=== PATIENT | male | born 1940 | race Caucasian/White ===

== ENCOUNTER 2021-03-14 18:37 | Inpatient (IN) | payer OTHER ==
[2021-03-14 20:39] VITALS: BMI 39.3
[2021-03-14 20:44] LABS: BASO % 0.9 % (0-2.0); EOS % 9.1 % (0-4.5); HEMATOCRIT 35.9 % (35.4-49); HEMOGLOBIN 12.3 GM/dL (11.7-16.9); LYMPH % 18.8 % (8-40); MCH 32.9 pg (25.7-33.7); MCHC 34.2 g/dl (32.0-35.9); MEAN CELL VOLUME 96.2 fl (80-96); MEAN PLT VOLUME 7.6 fl (7.5-11.1); MONO % 8.9 % (3.8-10.2); NEUT % 62.3 % (42.8-82.8); PLATELET COUNT 311 10^3/uL (134-434); RBC 3.73 M/mm3 (4.00-5.60); RDW 12.2 % (11.9-15.9)
[2021-03-14 21:01] LABS: CHLORIDE 105 mmol/L (98-107); SODIUM 139 mmol/L (136-145)
[2021-03-14 21:02] LABS: CALCIUM 8.9 mg/dL (8.5-10.1)
[2021-03-14 21:03] LABS: ALBUMIN 3.6 g/dl (3.4-5.0); ANION GAP 4 MMOL/L (8-16); BLOOD UREA NITROGEN 17.7 mg/dL (7-18); CO2 30 mmol/L (21-32); GLUCOSE,RANDOM 86 mg/dL (74-106)
[2021-03-14 21:06] LABS: CREATININE 1.1 mg/dL (0.55-1.3); SGOT/AST 18 U/L (15-37); SGPT/ALT 16 U/L (13-61)
[2021-03-14 21:08] LABS: BILIRUBIN,TOTAL 0.5 mg/dL (0.2-1); TOT PROT 6.6 g/dl (6.4-8.2)
[2021-03-14 21:09] LABS: ALK PHOS 59 U/L (45-117)
[2021-03-14 21:11] LABS: N-TERMINAL BNP 239.8 pg/ml (5-450)
[2021-03-14 22:54] LABS: PH,URINE 8.5 (5.0-8.0); URINE APPEARANCE CLEAR; URINE BILIRUBIN NEGATIVE (NEGATIVE); URINE COLOR YELLOW; URINE GLUCOSE (UA) NEGATIVE (NEGATIVE); URINE KETONE NEGATIVE (NEGATIVE); URINE LEUK ESTERASE NEGATIVE (NEGATIVE); URINE NITRITE NEGATIVE (NEGATIVE); URINE PROTEIN NEGATIVE (NEGATIVE); URINE UROBILINOGEN 0.2 mg/dL (0.2-1.0)
[2021-03-14] MEDS ORDERED: IBUPROFEN 600 MG TABLET (FP) PO ONE ×2 (22:54→22:56)
[2021-03-15] MEDS ORDERED: MELATONIN 5 MG TABLETS PO ONE (02:26)
[2021-03-15] MEDS ORDERED: ACETAMINOPHEN 325 MG TABLET (FP) PO PRN (05:59)
[2021-03-15] MEDS: FUROSEMIDE 40 MG/4 ML INJECTABLE VIAL IVPUSH SCH (15:10)
[2021-03-15] MEDS: amLODIPine BESYLATE 10 MG TABLET (FP) PO SCH (15:10)
[2021-03-15] MEDS ORDERED: PT OWN MED DRAWER 7, Y5N ONE (15:54)
[2021-03-15] MEDS: lamoTRIgine 100 MG TABLET PO SCH (15:57)
[2021-03-15] MEDS: ENOXAPARIN NA (PORCINE) 40 MG/0.4 ML DISP.SYRIN SQ SCH (15:57)
[2021-03-15] MEDS: MELATONIN 5 MG TABLETS PO PRN (21:21)
[2021-03-15] MEDS: ATORVASTATIN CA 20 MG TABLET (FP) PO SCH (21:21)
[2021-03-16] MEDS: amLODIPine BESYLATE 10 MG TABLET (FP) PO SCH (09:44)
[2021-03-16] MEDS: FUROSEMIDE 40 MG/4 ML INJECTABLE VIAL IVPUSH SCH (09:44)
[2021-03-16] MEDS: ENOXAPARIN NA (PORCINE) 40 MG/0.4 ML DISP.SYRIN SQ SCH (09:44)
[2021-03-16] MEDS: TAMSULOSIN HCL 0.4 MG CAP PO SCH (09:45)
[2021-03-16] MEDS: lamoTRIgine 100 MG TABLET PO SCH (09:45)
[2021-03-16 10:40] LABS: BASO % 0.4 % (0-2.0); HEMATOCRIT 39.7 % (35.4-49); HEMOGLOBIN 13.9 GM/dL (11.7-16.9); LYMPH % 10.7 % (8-40); MCH 33.1 pg (25.7-33.7); MCHC 35.1 g/dl (32.0-35.9); MEAN CELL VOLUME 94.4 fl (80-96); MEAN PLT VOLUME 7.3 fl (7.5-11.1); NEUT % 77.9 % (42.8-82.8); PLATELET COUNT 393 10^3/uL (134-434); RBC 4.21 M/mm3 (4.00-5.60); WHITE BLOOD COUNT 7.6 K/mm3 (4.0-10.0)
[2021-03-16 11:02] LABS: CALCIUM 9.2 mg/dL (8.5-10.1)
[2021-03-16 11:03] LABS: ALBUMIN 4.2 g/dl (3.4-5.0); BLOOD UREA NITROGEN 23.6 mg/dL (7-18)
[2021-03-16 11:06] LABS: CREATININE 1.2 mg/dL (0.55-1.3)
[2021-03-16 11:08] LABS: BILIRUBIN,TOTAL 0.7 mg/dL (0.2-1); TOT PROT 7.6 g/dl (6.4-8.2)
[2021-03-16] MEDS: ESCITALOPRAM OXALATE 10 MG TABLET PO SCH (12:20)
[2021-03-16] MEDS: ATORVASTATIN CA 20 MG TABLET (FP) PO SCH (21:03)
[2021-03-16] MEDS: MELATONIN 5 MG TABLETS PO PRN (22:11)
[2021-03-16] MEDS ORDERED: traZODone HCL 50 MG TABLET (FP) PO ONE (23:03)
[2021-03-17] MEDS ORDERED: QUEtiapine FUMARATE 25 MG TABLET PO ONE (05:24)
[2021-03-17] MEDS: TAMSULOSIN HCL 0.4 MG CAP PO SCH (07:54)
[2021-03-17] MEDS: ESCITALOPRAM OXALATE 10 MG TABLET PO SCH (08:59)
[2021-03-17] MEDS: ENOXAPARIN NA (PORCINE) 40 MG/0.4 ML DISP.SYRIN SQ SCH (08:59)
[2021-03-17] MEDS: lamoTRIgine 100 MG TABLET PO SCH (08:59)
[2021-03-17] MEDS: FUROSEMIDE 40 MG/4 ML INJECTABLE VIAL IVPUSH SCH (08:59)
[2021-03-17] MEDS: amLODIPine BESYLATE 10 MG TABLET (FP) PO SCH (08:59)
[2021-03-17] MEDS ORDERED: clonazePAM 0.5 MG TABLET PO PRN (09:06)
[2021-03-17] MEDS ORDERED: LORazepam 2 MG/ML SDV VIAL ONE (09:11)
[2021-03-17] MEDS ORDERED: levETIRAcetam 500 MG/5 ML INJECTION VIAL IVPB ONE (09:26)
[2021-03-17] MEDS ORDERED: LORazepam 2 MG/ML SDV VIAL IVPUSH ONE ×2 (09:38→10:11)
[2021-03-17] MEDS: LORazepam 2 MG/ML SDV VIAL IVPUSH PRN ×3 (11:30→17:26)
[2021-03-17 13:06] LABS: BASO % 0.1 % (0-2.0); EOS % 0.1 % (0-4.5); HEMATOCRIT 37.1 % (35.4-49); LYMPH % 5.2 % (8-40); MCH 33.5 pg (25.7-33.7); MEAN CELL VOLUME 95.6 fl (80-96); MEAN PLT VOLUME 7.8 fl (7.5-11.1); MONO % 7.2 % (3.8-10.2); NEUT % 87.4 % (42.8-82.8); PLATELET COUNT 355 10^3/uL (134-434); RBC 3.88 M/mm3 (4.00-5.60); RDW 12.2 % (11.9-15.9); WHITE BLOOD COUNT 9.6 K/mm3 (4.0-10.0)
[2021-03-17 13:32] LABS: ALBUMIN 3.7 g/dl (3.4-5.0); BLOOD UREA NITROGEN 28.9 mg/dL (7-18); CALCIUM 8.8 mg/dL (8.5-10.1)
[2021-03-17 13:35] LABS: CREATININE 1.2 mg/dL (0.55-1.3)
[2021-03-17 13:37] LABS: BILIRUBIN,TOTAL 0.7 mg/dL (0.2-1); TOT PROT 6.7 g/dl (6.4-8.2)
[2021-03-17] MEDS ORDERED: MELATONIN 5 MG TABLETS PO PRN (15:00)
[2021-03-17] MEDS ORDERED: ACETAMINOPHEN 325 MG TABLET (FP) PO PRN (15:00)
[2021-03-17] MEDS: PANTOPRAZOLE SODIUM 40 MG VIAL IVPUSH SCH (21:18)
[2021-03-17] MEDS: CHLORHEXIDINE GLUCONATE 4% CLEANSER FOR DECOLONIZATION TP SCH (21:18)
[2021-03-17] MEDS: MUPIROCIN 2% TOPICAL OINTMENT FOR DECOLONIZATION NS SCH (21:18)
[2021-03-17] MEDS: ATORVASTATIN CA 20 MG TABLET (FP) PO SCH (21:18)
[2021-03-17 22:08] LABS: EPI CELLS 12 /uL (0-25.1); HYALINE CASTS 3 /uL (0-3.1); PH,URINE 5.5 (5.0-8.0); URINE APPEARANCE CLOUDY; URINE BACTERIA 7 /uL (0-1359); URINE BILIRUBIN NEGATIVE (NEGATIVE); URINE COLOR RED; URINE GLUCOSE (UA) NEGATIVE (NEGATIVE); URINE KETONE TRACE (NEGATIVE); URINE LEUK ESTERASE 1+ (NEGATIVE); URINE NITRITE NEGATIVE (NEGATIVE); URINE PROTEIN 2+ (NEGATIVE); URINE RBC 12410 /uL (0-23.9); URINE WBC 51 /uL (0-25.8)
[2021-03-18 07:52] LABS: BASO % 0.5 % (0-2.0); HEMATOCRIT 38.7 % (35.4-49); HEMOGLOBIN 13.5 GM/dL (11.7-16.9); LYMPH % 10.3 % (8-40); MCH 33.6 pg (25.7-33.7); MCHC 34.9 g/dl (32.0-35.9); MEAN CELL VOLUME 96.2 fl (80-96); MEAN PLT VOLUME 7.6 fl (7.5-11.1); MONO % 11.2 % (3.8-10.2); PLATELET COUNT 370 10^3/uL (134-434); RBC 4.02 M/mm3 (4.00-5.60); RDW 12.2 % (11.9-15.9); WHITE BLOOD COUNT 7.4 K/mm3 (4.0-10.0)
[2021-03-18 08:16] LABS: CALCIUM 8.9 mg/dL (8.5-10.1)
[2021-03-18 08:17] LABS: BLOOD UREA NITROGEN 23.3 mg/dL (7-18); MAGNESIUM 2.1 mg/dL (1.8-2.4)
[2021-03-18] MEDS: TAMSULOSIN HCL 0.4 MG CAP PO SCH (09:30)
[2021-03-18] MEDS: ENOXAPARIN NA (PORCINE) 40 MG/0.4 ML DISP.SYRIN SQ SCH (10:12)
[2021-03-18] MEDS: PANTOPRAZOLE SODIUM 40 MG VIAL IVPUSH SCH (10:13)
[2021-03-18] MEDS: FUROSEMIDE 40 MG/4 ML INJECTABLE VIAL IVPUSH SCH (10:15)
[2021-03-18] MEDS: ESCITALOPRAM OXALATE 10 MG TABLET PO SCH (10:24)
[2021-03-18] MEDS: amLODIPine BESYLATE 10 MG TABLET (FP) PO SCH (10:25)
[2021-03-18] MEDS: MUPIROCIN 2% TOPICAL OINTMENT FOR DECOLONIZATION NS SCH ×2 (11:00→21:19)
[2021-03-18] MEDS ORDERED: clonazePAM 0.5 MG TABLET PO PRN (12:10)
[2021-03-18] MEDS: ATORVASTATIN CA 20 MG TABLET (FP) PO SCH (21:19)
[2021-03-18] MEDS: CHLORHEXIDINE GLUCONATE 4% CLEANSER FOR DECOLONIZATION TP SCH (21:19)
[2021-03-19 07:49] LABS: BASO % 0.5 % (0-2.0); EOS % 2.4 % (0-4.5); HEMATOCRIT 38.6 % (35.4-49); HEMOGLOBIN 13.1 GM/dL (11.7-16.9); LYMPH % 10.2 % (8-40); MCH 32.5 pg (25.7-33.7); MCHC 33.9 g/dl (32.0-35.9); MEAN PLT VOLUME 7.8 fl (7.5-11.1); NEUT % 75.9 % (42.8-82.8); PLATELET COUNT 338 10^3/uL (134-434); RBC 4.03 M/mm3 (4.00-5.60); RDW 12.1 % (11.9-15.9); WHITE BLOOD COUNT 7.2 K/mm3 (4.0-10.0)
[2021-03-19 08:10] LABS: ALBUMIN 3.1 g/dl (3.4-5.0); BLOOD UREA NITROGEN 31.5 mg/dL (7-18); CALCIUM 8.7 mg/dL (8.5-10.1)
[2021-03-19 08:12] LABS: MAGNESIUM 2.1 mg/dL (1.8-2.4)
[2021-03-19 08:14] LABS: BILIRUBIN,TOTAL 0.7 mg/dL (0.2-1); CREATININE 1.1 mg/dL (0.55-1.3); PHOSPHOROUS 3.6 mg/dL (2.5-4.9)
[2021-03-19 08:15] LABS: TOT PROT 6.1 g/dl (6.4-8.2)
[2021-03-19] MEDS: TAMSULOSIN HCL 0.4 MG CAP PO SCH (09:28)
[2021-03-19] MEDS: FUROSEMIDE 40 MG/4 ML INJECTABLE VIAL IVPUSH SCH (09:28)
[2021-03-19] MEDS: amLODIPine BESYLATE 10 MG TABLET (FP) PO SCH (09:28)
[2021-03-19] MEDS: ESCITALOPRAM OXALATE 10 MG TABLET PO SCH (09:28)
[2021-03-19] MEDS: ENOXAPARIN NA (PORCINE) 40 MG/0.4 ML DISP.SYRIN SQ SCH (09:28)
[2021-03-19] MEDS: PANTOPRAZOLE SODIUM 40 MG VIAL IVPUSH SCH (09:30)
[2021-03-19] MEDS: MUPIROCIN 2% TOPICAL OINTMENT FOR DECOLONIZATION NS SCH ×2 (10:16→21:56)
[2021-03-19] MEDS ORDERED: SULFAMETHOXAZOLE/TRIMETHOPRIM 800MG/160MG D.S. TABLET PO SCH (13:45)
[2021-03-19] MEDS ORDERED: clonazePAM 0.5 MG TABLET PO PRN ×2 (14:25→17:10)
[2021-03-19] MEDS ORDERED: MELATONIN 5 MG TABLETS PO PRN (14:25)
[2021-03-19] MEDS ORDERED: ACETAMINOPHEN 325 MG TABLET (FP) PO PRN ×2 (14:25→17:10)
[2021-03-19] MEDS: ATORVASTATIN CA 20 MG TABLET (FP) PO SCH (21:55)
[2021-03-19] MEDS: SULFAMETHOXAZOLE/TRIMETHOPRIM 800MG/160MG D.S. TABLET PO SCH (21:55)
[2021-03-19] MEDS: MELATONIN 5 MG TABLETS PO PRN (21:55)
[2021-03-19] MEDS: CHLORHEXIDINE GLUCONATE 4% CLEANSER FOR DECOLONIZATION TP SCH (21:56)
[2021-03-19] MEDS ORDERED: CHLORHEXIDINE GLUCONATE 4% CLEANSER FOR DECOLONIZATION TP SCH (22:00)
[2021-03-19] MEDS ORDERED: MUPIROCIN 2% TOPICAL OINTMENT FOR DECOLONIZATION NS SCH (22:00)
[2021-03-19] MEDS ORDERED: ATORVASTATIN CA 20 MG TABLET (FP) PO SCH (22:00)
[2021-03-20] MEDS ORDERED: TAMSULOSIN HCL 0.4 MG CAP PO SCH (08:30)
[2021-03-20] MEDS ORDERED: ESCITALOPRAM OXALATE 10 MG TABLET PO SCH (10:00)
[2021-03-20] MEDS ORDERED: amLODIPine BESYLATE 10 MG TABLET (FP) PO SCH (10:00)
[2021-03-20] MEDS ORDERED: FUROSEMIDE 40 MG/4 ML INJECTABLE VIAL IVPUSH SCH ×2 (10:00)
[2021-03-20] MEDS ORDERED: SULFAMETHOXAZOLE/TRIMETHOPRIM 800MG/160MG D.S. TABLET PO SCH ×2 (10:00)
[2021-03-20] MEDS ORDERED: PANTOPRAZOLE SODIUM 40 MG VIAL IVPUSH SCH (10:00)
[2021-03-20] MEDS ORDERED: ENOXAPARIN NA (PORCINE) 40 MG/0.4 ML DISP.SYRIN SQ SCH (10:00)
[2021-03-20] MEDS: SULFAMETHOXAZOLE/TRIMETHOPRIM 800MG/160MG D.S. TABLET PO SCH ×2 (10:02→21:02)
[2021-03-20] MEDS: MUPIROCIN 2% TOPICAL OINTMENT FOR DECOLONIZATION NS SCH ×2 (10:03→21:42)
[2021-03-20] MEDS: ENOXAPARIN NA (PORCINE) 40 MG/0.4 ML DISP.SYRIN SQ SCH (10:03)
[2021-03-20] MEDS: amLODIPine BESYLATE 10 MG TABLET (FP) PO SCH (10:03)
[2021-03-20] MEDS: TAMSULOSIN HCL 0.4 MG CAP PO SCH (10:03)
[2021-03-20] MEDS: ESCITALOPRAM OXALATE 10 MG TABLET PO SCH (10:03)
[2021-03-20] MEDS: PANTOPRAZOLE SODIUM 40 MG VIAL IVPUSH SCH (10:23)
[2021-03-20] MEDS: MELATONIN 5 MG TABLETS PO PRN (21:02)
[2021-03-20] MEDS: ATORVASTATIN CA 20 MG TABLET (FP) PO SCH (21:02)
[2021-03-20] MEDS: CHLORHEXIDINE GLUCONATE 4% CLEANSER FOR DECOLONIZATION TP SCH (21:42)
[2021-03-21] MEDS ORDERED: FUROSEMIDE 40 MG TABLET (FP) PO SCH (10:00)
[2021-03-21] MEDS: ENOXAPARIN NA (PORCINE) 40 MG/0.4 ML DISP.SYRIN SQ SCH (10:08)
[2021-03-21] MEDS: PANTOPRAZOLE SODIUM 40 MG VIAL IVPUSH SCH (10:08)
[2021-03-21] MEDS: SULFAMETHOXAZOLE/TRIMETHOPRIM 800MG/160MG D.S. TABLET PO SCH (10:08)
[2021-03-21] MEDS: TAMSULOSIN HCL 0.4 MG CAP PO SCH (10:09)
[2021-03-21] MEDS: ESCITALOPRAM OXALATE 10 MG TABLET PO SCH (10:09)
[2021-03-21] MEDS: amLODIPine BESYLATE 10 MG TABLET (FP) PO SCH (10:09)
[2021-03-21] MEDS: MUPIROCIN 2% TOPICAL OINTMENT FOR DECOLONIZATION NS SCH (10:10)
[2021-03-21 10:38] VITALS: BP 145/76; PULSE 73; TEMP 98.9
[2021-03-21] MEDS ORDERED: lamoTRIgine 100 MG TABLET PO SCH (15:21)
== END 2021-03-21 15:47 | DRG 897 ==
LOC: JER 18:37 → JERBED 19:41 → J4W 03-15 11:35 → J7W 03-16 15:54 → JICU 03-17 10:09 → OBSVTOIN 03-17 16:07 → J5S 03-19 17:58
PROVIDERS: ADMIT Internal Medicine
DX: F13.239 Sedative, hypnotic or anxiolytic dependence with withdrawal, unspecified (principal); R56.9 Unspecified convulsions; I89.0 Lymphedema, not elsewhere classified; R29.6 Repeated falls; I10 Essential (primary) hypertension; E78.5 Hyperlipidemia, unspecified; F32.9 Major depressive disorder, single episode, unspecified; F41.9 Anxiety disorder, unspecified; H40.20X0 Unspecified primary angle-closure glaucoma, stage unspecified; E66.01 Morbid (severe) obesity due to excess calories; G47.00 Insomnia, unspecified; I27.20 Pulmonary hypertension, unspecified; Z68.39 Body mass index [BMI] 39.0-39.9, adult; I71.2 Thoracic aortic aneurysm, without rupture; F41.0 Panic disorder [episodic paroxysmal anxiety]; R33.9 Retention of urine, unspecified
CPT/HCPCS: 36415; 70450-TC; 71045-TC-FY; 71250-TC; 72125-TC; 72170-TC-FY; 73070-TC-RT-FY; 80048; 80053; 80061; 80175; 81003; 82550; 82607; 82962; 83036; 83605; 83735; 83880; 84100; 84146; 84443; 84484; 85025; 85730; 86780; 87040; 87086; 93005; 93010; 93306-TC; 93880-TC; 93971-TC; 97116-GP; 97162-GP; 99285-25; C9803; G0378; U0003; U0005

== ENCOUNTER 2022-02-06 14:17 | Inpatient (IN) | payer OTHER ==
[2022-02-06] MEDS ORDERED: PIPERACILLIN/TAZOB 3.375 GM 3.375 GM in DEXTROSE 5%-WATER - 50 ML IVPB ONE (16:47)
[2022-02-06] MEDS ORDERED: PIPERACILLIN/TAZOB 3.375 GM 3.375 GM/50 ML BAG IVPB ONE (18:34)
[2022-02-06 19:00] LABS: BLOOD UREA NITROGEN 14.1 mg/dL (7-18); CALCIUM 9.2 mg/dL (8.5-10.1)
[2022-02-06 19:01] LABS: ALBUMIN 3.5 g/dl (3.4-5.0)
[2022-02-06 19:04] LABS: CREATININE 1.1 mg/dL (0.55-1.3)
[2022-02-06 19:05] LABS: BILIRUBIN,TOTAL 0.4 mg/dL (0.2-1); TOT PROT 7.4 g/dl (6.4-8.2)
[2022-02-06 19:08] LABS: BASO % 0.4 % (0-2.0); HEMATOCRIT 39.3 % (35.4-49); HEMOGLOBIN 12.9 GM/dL (11.7-16.9); LYMPH % 15.9 % (8-40); MCH 32.5 pg (25.7-33.7); MCHC 32.8 g/dl (32.0-35.9); MEAN CELL VOLUME 99.2 fl (80-96); MEAN PLT VOLUME 7.1 fl (7.5-11.1); MONO % 13.4 % (3.8-10.2); NEUT % 66.3 % (42.8-82.8); PLATELET COUNT 381 10^3/uL (134-434); RBC 3.97 M/mm3 (4.00-5.60); RDW 13.3 % (11.9-15.9); WHITE BLOOD COUNT 4.8 K/mm3 (4.0-10.0)
[2022-02-06 19:38] LABS: ACTIVATED PTT 35.3 SECONDS (25.2-36.5); INR 1.08 (0.83-1.09); PROTHROMBIN TIME (PATIENT) 12.4 SEC (9.7-13.0)
[2022-02-06 20:12] LABS: ERYTHROCYTE SEDIMENTATION RATE 75 mm/hr (0-20)
[2022-02-06 21:15] LABS: N-TERMINAL BNP 338.1 pg/ml (5-450)
[2022-02-07] MEDS ORDERED: MELATONIN 5 MG TABLETS ONE (00:26)
[2022-02-07] MEDS ORDERED: ATORVASTATIN CA 20 MG TABLET (FP) ONE (00:26)
[2022-02-07] MEDS: MELATONIN 5 MG TABLETS PO PRN ×2 (00:28→21:41)
[2022-02-07 04:10] VITALS: BMI 43.5
[2022-02-07 09:00] LABS: BASO % 0.5 % (0-2.0); EOS % 3.4 % (0-4.5); HEMATOCRIT 37.6 % (35.4-49); HEMOGLOBIN 12.5 GM/dL (11.7-16.9); LYMPH % 14.2 % (8-40); MCHC 33.4 g/dl (32.0-35.9); MEAN CELL VOLUME 98.8 fl (80-96); MEAN PLT VOLUME 7.1 fl (7.5-11.1); MONO % 15.4 % (3.8-10.2); NEUT % 66.5 % (42.8-82.8); PLATELET COUNT 393 10^3/uL (134-434)
[2022-02-07] MEDS: amLODIPine BESYLATE 10 MG TABLET (FP) PO SCH (09:20)
[2022-02-07] MEDS: TAMSULOSIN HCL 0.4 MG CAP PO SCH (09:21)
[2022-02-07 09:28] LABS: ALBUMIN 3.3 g/dl (3.4-5.0); CALCIUM 9.1 mg/dL (8.5-10.1)
[2022-02-07 09:29] LABS: BLOOD UREA NITROGEN 19.6 mg/dL (7-18)
[2022-02-07 09:31] LABS: CREATININE 1.2 mg/dL (0.55-1.3)
[2022-02-07 09:33] LABS: BILIRUBIN,TOTAL 0.6 mg/dL (0.2-1); TOT PROT 6.8 g/dl (6.4-8.2)
[2022-02-07] MEDS: lamoTRIgine 100 MG TABLET PO SCH ×2 (11:16→21:39)
[2022-02-07] MEDS: busPIRone HCL 10 MG TABLET (FP) PO SCH ×2 (12:30→21:39)
[2022-02-07] MEDS: ATORVASTATIN CA 20 MG TABLET (FP) PO SCH (21:39)
[2022-02-08] MEDS ORDERED: ZOLPIDEM TARTRATE 5 MG TABLET PO ONE (01:19)
[2022-02-08] MEDS: busPIRone HCL 10 MG TABLET (FP) PO SCH ×2 (10:31→21:42)
[2022-02-08] MEDS: ENOXAPARIN NA (PORCINE) 40 MG/0.4 ML DISP.SYRIN SQ SCH (10:31)
[2022-02-08] MEDS: TAMSULOSIN HCL 0.4 MG CAP PO SCH (10:31)
[2022-02-08] MEDS: amLODIPine BESYLATE 10 MG TABLET (FP) PO SCH (10:31)
[2022-02-08] MEDS: lamoTRIgine 100 MG TABLET PO SCH ×2 (11:53→21:59)
[2022-02-08] MEDS: MEROPENEM 1 GM in DEXTROSE 5%-WATER 100 ML IVPB SCH ×2 (14:02→18:30)
[2022-02-08] MEDS: ATORVASTATIN CA 20 MG TABLET (FP) PO SCH (21:42)
[2022-02-09] MEDS: MEROPENEM 1 GM in DEXTROSE 5%-WATER 100 ML IVPB SCH ×3 (01:36→17:15)
[2022-02-09] MEDS: TAMSULOSIN HCL 0.4 MG CAP PO SCH (08:46)
[2022-02-09] MEDS: ENOXAPARIN NA (PORCINE) 40 MG/0.4 ML DISP.SYRIN SQ SCH (09:18)
[2022-02-09] MEDS: busPIRone HCL 10 MG TABLET (FP) PO SCH ×2 (09:19→21:35)
[2022-02-09] MEDS: lamoTRIgine 100 MG TABLET PO SCH ×2 (09:19→21:39)
[2022-02-09] MEDS: amLODIPine BESYLATE 10 MG TABLET (FP) PO SCH (09:19)
[2022-02-09] MEDS: ATORVASTATIN CA 20 MG TABLET (FP) PO SCH (21:35)
[2022-02-09] MEDS: MELATONIN 5 MG TABLETS PO PRN (21:38)
[2022-02-10] MEDS: MEROPENEM 1 GM in DEXTROSE 5%-WATER 100 ML IVPB SCH ×3 (01:42→17:09)
[2022-02-10] MEDS: TAMSULOSIN HCL 0.4 MG CAP PO SCH (08:34)
[2022-02-10] MEDS: lamoTRIgine 100 MG TABLET PO SCH ×2 (09:10→22:11)
[2022-02-10] MEDS: busPIRone HCL 10 MG TABLET (FP) PO SCH ×2 (09:10→22:11)
[2022-02-10] MEDS: ENOXAPARIN NA (PORCINE) 40 MG/0.4 ML DISP.SYRIN SQ SCH (09:10)
[2022-02-10] MEDS: amLODIPine BESYLATE 10 MG TABLET (FP) PO SCH (09:10)
[2022-02-10] MEDS: NYSTATIN 100000 UNIT/GM TOPICAL OINTMENT 15 GM TUBE TP SCH ×2 (16:02→22:13)
[2022-02-10] MEDS: MELATONIN 5 MG TABLETS PO PRN (22:11)
[2022-02-10] MEDS: ATORVASTATIN CA 20 MG TABLET (FP) PO SCH (22:11)
[2022-02-11] MEDS: MEROPENEM 1 GM in DEXTROSE 5%-WATER 100 ML IVPB SCH ×3 (01:59→17:55)
[2022-02-11] MEDS: busPIRone HCL 10 MG TABLET (FP) PO SCH ×2 (10:03→21:16)
[2022-02-11] MEDS: TAMSULOSIN HCL 0.4 MG CAP PO SCH (10:03)
[2022-02-11] MEDS: lamoTRIgine 100 MG TABLET PO SCH ×2 (10:03→21:17)
[2022-02-11] MEDS: ENOXAPARIN NA (PORCINE) 40 MG/0.4 ML DISP.SYRIN SQ SCH (10:03)
[2022-02-11] MEDS: NYSTATIN 100000 UNIT/GM TOPICAL OINTMENT 15 GM TUBE TP SCH ×2 (10:04→21:17)
[2022-02-11] MEDS: amLODIPine BESYLATE 10 MG TABLET (FP) PO SCH (10:07)
[2022-02-11] MEDS: ATORVASTATIN CA 20 MG TABLET (FP) PO SCH (21:16)
[2022-02-12] MEDS: MEROPENEM 1 GM in DEXTROSE 5%-WATER 100 ML IVPB SCH ×3 (01:40→18:22)
[2022-02-12] MEDS: TAMSULOSIN HCL 0.4 MG CAP PO SCH (07:57)
[2022-02-12] MEDS: ENOXAPARIN NA (PORCINE) 40 MG/0.4 ML DISP.SYRIN SQ SCH (09:22)
[2022-02-12] MEDS: NYSTATIN 100000 UNIT/GM TOPICAL OINTMENT 15 GM TUBE TP SCH ×2 (09:23→21:56)
[2022-02-12] MEDS: busPIRone HCL 10 MG TABLET (FP) PO SCH ×2 (09:23→21:55)
[2022-02-12] MEDS: amLODIPine BESYLATE 10 MG TABLET (FP) PO SCH (09:23)
[2022-02-12] MEDS: lamoTRIgine 100 MG TABLET PO SCH ×2 (09:23→21:55)
[2022-02-12 12:53] LABS: HEMATOCRIT 34.6 % (35.4-49); HEMOGLOBIN 11.6 GM/dL (11.7-16.9); MCH 32.5 pg (25.7-33.7); MCHC 33.4 g/dl (32.0-35.9); MEAN CELL VOLUME 97.4 fl (80-96); PLATELET COUNT 352 10^3/uL (134-434); RBC 3.56 M/mm3 (4.00-5.60); WHITE BLOOD COUNT 4.5 K/mm3 (4.0-10.0)
[2022-02-12 14:32] LABS: ALBUMIN 2.9 g/dl (3.4-5.0); BILIRUBIN,TOTAL 0.5 mg/dL (0.2-1); BLOOD UREA NITROGEN 14.2 mg/dL (7-18); CALCIUM 8.8 mg/dL (8.5-10.1)
[2022-02-12] MEDS: ATORVASTATIN CA 20 MG TABLET (FP) PO SCH (21:55)
[2022-02-12] MEDS: ZOLPIDEM TARTRATE 5 MG TABLET PO PRN (22:00)
[2022-02-13] MEDS: MEROPENEM 1 GM in DEXTROSE 5%-WATER 100 ML IVPB SCH ×2 (02:28→11:23)
[2022-02-13] MEDS: ENOXAPARIN NA (PORCINE) 40 MG/0.4 ML DISP.SYRIN SQ SCH (11:23)
[2022-02-13] MEDS: amLODIPine BESYLATE 5 MG TABLET (FP) PO SCH (11:24)
[2022-02-13] MEDS: busPIRone HCL 10 MG TABLET (FP) PO SCH ×2 (11:24→21:39)
[2022-02-13] MEDS: TAMSULOSIN HCL 0.4 MG CAP PO SCH (11:24)
[2022-02-13] MEDS: lamoTRIgine 100 MG TABLET PO SCH ×2 (11:24→21:40)
[2022-02-13] MEDS: NYSTATIN 100000 UNIT/GM TOPICAL OINTMENT 15 GM TUBE TP SCH ×2 (11:25→21:45)
[2022-02-13] MEDS ORDERED: ACETAMINOPHEN 1000 MG/100 ML BAG IVPB PRN (19:38)
[2022-02-13] MEDS: ATORVASTATIN CA 20 MG TABLET (FP) PO SCH (21:39)
[2022-02-13] MEDS: ZOLPIDEM TARTRATE 5 MG TABLET PO PRN (21:39)
[2022-02-13] MEDS: MELATONIN 5 MG TABLETS PO PRN (21:39)
[2022-02-14] MEDS: busPIRone HCL 10 MG TABLET (FP) PO SCH (09:28)
[2022-02-14] MEDS: TAMSULOSIN HCL 0.4 MG CAP PO SCH (09:28)
[2022-02-14] MEDS: amLODIPine BESYLATE 5 MG TABLET (FP) PO SCH (09:28)
[2022-02-14] MEDS: ENOXAPARIN NA (PORCINE) 40 MG/0.4 ML DISP.SYRIN SQ SCH (09:28)
[2022-02-14] MEDS: lamoTRIgine 100 MG TABLET PO SCH (09:30)
[2022-02-14] MEDS: NYSTATIN 100000 UNIT/GM TOPICAL OINTMENT 15 GM TUBE TP SCH (09:31)
[2022-02-14 09:42] VITALS: BP 123/52; PULSE 95; RESP 18; TEMP 98.1
== END 2022-02-14 15:12 | disposition home health service (06) | DRG 603 ==
LOC: JER 14:17 → JERBED 19:28 → J5S 02-07 04:59
PROVIDERS: ADMIT Internal Medicine; ATTEND Family Medicine
DX: L03.115 Cellulitis of right lower limb (principal); Z68.41 Body mass index [BMI] 40.0-44.9, adult; I10 Essential (primary) hypertension; E78.5 Hyperlipidemia, unspecified; N40.0 Benign prostatic hyperplasia without lower urinary tract symptoms; I89.0 Lymphedema, not elsewhere classified; E66.9 Obesity, unspecified; F41.8 Other specified anxiety disorders; E11.65 Type 2 diabetes mellitus with hyperglycemia; R56.9 Unspecified convulsions; R29.6 Repeated falls; I87.2 Venous insufficiency (chronic) (peripheral); G47.30 Sleep apnea, unspecified
CPT/HCPCS: 36415; 70450-TC; 71045-TC-FY; 73590-TC-RT-FY; 73610-TC-RT-FY; 73630-TC-RT-FY; 80053; 83880; 84484; 85025; 85027; 85610; 85651; 85730; 86140; 87040; 87070; 87205; 93005; 93010; 93971-TC; 97116-GP; 97161-GP; 99285-25; C9803-CS; G0463-25; U0003; U0005

== ENCOUNTER 2022-03-18 13:59 | Inpatient (IN) | payer OTHER ==
[2022-03-18] MEDS ORDERED: PIPERACILLIN/TAZOB 4.5 GM 4.5 GM in DEXTROSE 5%-WATER 100 ML IVPB ONE (16:55)
[2022-03-18 17:22] LABS: BASO % 0.3 % (0-2.0); EOS % 4.7 % (0-4.5); HEMATOCRIT 35.1 % (35.4-49); HEMOGLOBIN 11.7 GM/dL (11.7-16.9); LYMPH % 14.1 % (8-40); MCH 33.3 pg (25.7-33.7); MCHC 33.3 g/dl (32.0-35.9); MEAN CELL VOLUME 100.1 fl (80-96); MEAN PLT VOLUME 6.9 fl (7.5-11.1); MONO % 18.9 % (3.8-10.2); PLATELET COUNT 309 10^3/uL (134-434); RBC 3.51 M/mm3 (4.00-5.60); RDW 14.2 % (11.9-15.9); WHITE BLOOD COUNT 3.8 K/mm3 (4.0-10.0)
[2022-03-18] MEDS ORDERED: PIPERACILLIN/TAZOB 4.5 GM 4.5 GM/100 ML BAG IVPB ONE (17:25)
[2022-03-18 17:30] LABS: INR 1.09 (0.83-1.09); PROTHROMBIN TIME (PATIENT) 12.5 SEC (9.7-13.0)
[2022-03-18 17:33] LABS: ACTIVATED PTT 31.9 SECONDS (25.2-36.5)
[2022-03-18 17:45] LABS: CALCIUM 8.4 mg/dL (8.5-10.1)
[2022-03-18 17:46] LABS: BLOOD UREA NITROGEN 15.7 mg/dL (7-18)
[2022-03-18 17:51] LABS: BILIRUBIN,TOTAL 0.5 mg/dL (0.2-1); TOT PROT 6.2 g/dl (6.4-8.2)
[2022-03-18 17:54] LABS: N-TERMINAL BNP 429.3 pg/ml (5-450)
[2022-03-18] MEDS ORDERED: ZOLPIDEM TARTRATE 5 MG TABLET PO ONE (22:01)
[2022-03-18 22:59] VITALS: BMI 43.8
[2022-03-19] MEDS ORDERED: MEROPENEM 1 GM in DEXTROSE 5%-WATER 100 ML IVPB SCH ×2 (07:30→10:00)
[2022-03-19 08:30] LABS: HEMATOCRIT 37.4 % (35.4-49); HEMOGLOBIN 12.1 GM/dL (11.7-16.9); MCH 32.4 pg (25.7-33.7); MCHC 32.4 g/dl (32.0-35.9); MEAN PLT VOLUME 7.4 fl (7.5-11.1); PLATELET COUNT 347 10^3/uL (134-434); RBC 3.74 M/mm3 (4.00-5.60); RDW 14.2 % (11.9-15.9); WHITE BLOOD COUNT 4.2 K/mm3 (4.0-10.0)
[2022-03-19 08:47] LABS: CALCIUM 8.8 mg/dL (8.5-10.1)
[2022-03-19 08:48] LABS: BLOOD UREA NITROGEN 16.3 mg/dL (7-18)
[2022-03-19] MEDS: ESCITALOPRAM OXALATE 20 MG TABLET PO SCH (09:28)
[2022-03-19] MEDS: busPIRone HCL 10 MG TABLET (FP) PO SCH ×2 (09:28→21:01)
[2022-03-19] MEDS: metoPROLOL SUCCINATE 25 MG TAB.SR.24H (FP) PO SCH (09:28)
[2022-03-19 09:57] LABS: ANISOCYTOSIS 0; MACROCYTOSIS 1+; OVALOCYTE 1+
[2022-03-19] MEDS: NYSTATIN 100,000 UNIT/GM TOPICAL CREAM 15 GM TUBE TP SCH ×2 (14:19→21:02)
[2022-03-19 14:21] VITALS: RESP 18
[2022-03-19] MEDS: MEROPENEM 1 GM in DEXTROSE 5%-WATER 100 ML IVPB SCH (17:27)
[2022-03-19] MEDS ORDERED: ZOLPIDEM TARTRATE 5 MG TABLET PO ONE (19:59)
[2022-03-19] MEDS: ACETAMINOPHEN 325 MG TABLET (FP) PO PRN (21:44)
[2022-03-20] MEDS: MEROPENEM 1 GM in DEXTROSE 5%-WATER 100 ML IVPB SCH ×3 (02:03→17:36)
[2022-03-20] MEDS: metoPROLOL SUCCINATE 25 MG TAB.SR.24H (FP) PO SCH (09:07)
[2022-03-20] MEDS: ESCITALOPRAM OXALATE 20 MG TABLET PO SCH (09:07)
[2022-03-20] MEDS: busPIRone HCL 10 MG TABLET (FP) PO SCH ×2 (09:07→23:28)
[2022-03-20] MEDS: NYSTATIN 100,000 UNIT/GM TOPICAL CREAM 15 GM TUBE TP SCH ×2 (09:09→23:30)
[2022-03-21] MEDS: MEROPENEM 1 GM in DEXTROSE 5%-WATER 100 ML IVPB SCH ×3 (03:06→17:07)
[2022-03-21] MEDS: ESCITALOPRAM OXALATE 20 MG TABLET PO SCH (10:17)
[2022-03-21] MEDS: busPIRone HCL 10 MG TABLET (FP) PO SCH ×2 (10:17→22:04)
[2022-03-21] MEDS: metoPROLOL SUCCINATE 25 MG TAB.SR.24H (FP) PO SCH (10:18)
[2022-03-21] MEDS: NYSTATIN 100,000 UNIT/GM TOPICAL CREAM 15 GM TUBE TP SCH ×2 (10:21→22:05)
[2022-03-21] MEDS: ACETAMINOPHEN 325 MG TABLET (FP) PO PRN (22:13)
[2022-03-22] MEDS: MEROPENEM 1 GM in DEXTROSE 5%-WATER 100 ML IVPB SCH ×2 (01:20→10:38)
[2022-03-22 07:31] VITALS: BP 184/70; PULSE 67; TEMP 97.8
[2022-03-22] MEDS ORDERED: ESCITALOPRAM OXALATE 10 MG TABLET PO SCH (10:00)
[2022-03-22] MEDS: busPIRone HCL 10 MG TABLET (FP) PO SCH (10:36)
[2022-03-22] MEDS: metoPROLOL SUCCINATE 25 MG TAB.SR.24H (FP) PO SCH (10:36)
[2022-03-22] MEDS: NYSTATIN 100,000 UNIT/GM TOPICAL CREAM 15 GM TUBE TP SCH (10:37)
== END 2022-03-22 14:30 | disposition home health service (06) | DRG 603 ==
LOC: JER 13:59 → JERBED 17:10 → J7W 20:43
PROVIDERS: ADMIT Internal Medicine; ATTEND Family Medicine
DX: L03.115 Cellulitis of right lower limb (principal); E66.9 Obesity, unspecified; F41.8 Other specified anxiety disorders; I89.0 Lymphedema, not elsewhere classified; I87.2 Venous insufficiency (chronic) (peripheral); I10 Essential (primary) hypertension; B35.1 Tinea unguium; E11.9 Type 2 diabetes mellitus without complications; N40.0 Benign prostatic hyperplasia without lower urinary tract symptoms
CPT/HCPCS: 0241U-QW; 36415; 73590-TC-RT-FY; 73610-TC-RT-FY; 80048; 80053; 83735; 83880; 85025; 85610; 85730; 86850; 86900; 86901; 87040; 87070; 87205; 93005; 93010; 93971-TC; 99285-25; G0463-25